=== PATIENT | male | born 1975 | race African-American/Black ===

== ENCOUNTER 2022-05-25 08:14 | Emergency (ER) | payer BC ==
[2022-05-25] MEDS ORDERED: diphenhydrAMINE 50 MG/ML VIAL ONE (09:02)
[2022-05-25] MEDS ORDERED: Metoclopramide HCl 10 MG/2 ML VIAL ONE (09:02)
[2022-05-25 09:30] LABS: #Eosinphils 0.1 10x3/uL (0.0-0.5); #Monocytes 0.6 10x3/uL (0.0-1.1); #Neutrophils 3.3 10x3/uL (1.5-8.4); %Basophils 0.5 % (0.0-2.0); %Lymphocytes 30.7 % (18.0-47.0); %Monocytes 10.9 % (0.0-10.0); %Neutrophils 56.6 % (40.0-75.0); Hemoglobin 16.3 g/dL (13.5-17.5); Mean Corpuscular HGB CONC 34.9 g/dL (32.0-36.0); Mean Corpuscular Hemoglobin 30.5 pg (27.0-33.0); Mean Corpuscular Volume 87.3 fl (81.2-95.1); Mean Platelet Volume 9.1 fl (7.4-10.4); Platelet Count 327 10x3/uL (150-450); Red Blood Cell (RBC) Count 5.35 10x6/uL (4.32-5.72); White Blood Cell (WBC) Count 5.9 10x3/uL (3.5-10.5)
[2022-05-25 09:48] LABS: ALT (SGPT) 28 U/L (8-55); AST (SGOT) 23 U/L (5-34); Alkaline Phosphatase 86 U/L (40-110); Anion Gap 10 mmol/L (10-20); BUN (Urea Nitrogen) 11 mg/dL (8.9-20.6); Bilirubin, Total 0.8 mg/dL (0.2-1.2); Calc. Creatinine Clearance 0 mL/min (70-130); Calcium 9.8 mg/dL (7.8-10.44); Carbon Dioxide 25 mmol/L (22-29); Chloride 106 mmol/L (98-107); Estimated GFR 76; Globulin 3.4 g/dL (2.4-3.5); Glucose 99 mg/dL (70-105); Protein, Total 7.4 g/dL (6.0-8.3); Sodium 137 mmol/L (136-145)
[2022-05-25] MEDS ORDERED: Acetaminophen 500 MG TAB ONE (09:49)
[2022-05-25] MEDS ORDERED: Dexamethasone 10 MG/ML VIAL ONE ×2 (09:49→09:50)
[2022-05-25] MEDS ORDERED: Ketorolac Tromethamine 30 MG/ML VIAL ONE (09:49)
[2022-05-25] MEDS ORDERED: Magnesium 2 GM/50 ML BAG (IN WATER) ONE (09:50)
== END 2022-05-25 11:17 | disposition home or self-care (01) ==
LOC: CSHERS 08:14
DX: R51.9 Headache, unspecified (principal); R42 Dizziness and giddiness; R29.700 NIHSS score 0; F17.210 Nicotine dependence, cigarettes, uncomplicated; Z85.841 Personal history of malignant neoplasm of brain
CPT/HCPCS: 70450; 80053; 85025; 96361; 96365; 96375; J1100; J1200; J1885; J2765; J3475

== ENCOUNTER 2024-08-07 17:40 | Observation (INO) | payer BC ==
[2024-08-07 18:09] LABS: #Basophils 0.02 10x3/uL (0.0-0.2); #Eosinophils 0.07 10x3/uL (0.0-0.5); #Monocytes 0.64 10x3/uL (0.0-1.1); #Neutrophils 2.96 10x3/uL (1.5-8.4); %Basophils 0.3 % (0.0-2.0); %Eosinophils 1.1 % (0.0-6.0); %Lymphocytes 39.2 % (18.0-47.0); %Monocytes 10.5 % (0.0-10.0); %Neutrophils 48.6 % (40.0-75.0); Hematocrit 46.1 % (38.8-50.0); Hemoglobin 16.1 g/dL (13.5-17.5); Mean Corpuscular HGB CONC 34.9 g/dL (32.0-36.0); Mean Corpuscular Hemoglobin 30.3 pg (27.0-33.0); Mean Corpuscular Volume 86.8 fL (81.2-95.1); Mean Platelet Volume 9.1 fL (7.4-10.4); Platelet Count 312 10x3/uL (150-450); RBC Distribution Width 13.6 % (11.5-14.5); Red Blood Cell (RBC) Count 5.31 10x6/uL (4.32-5.72); White Blood Cell (WBC) Count 6.1 10x3/uL (3.5-10.5)
[2024-08-07 18:22] LABS: PTT 29.3 sec (22.0-33.0); Prothrombin Time 10.5 sec (9.5-12.1)
[2024-08-07 18:24] LABS: ALT (SGPT) 30 U/L (8-55); AST (SGOT) 25 U/L (5-34); Alcohol Less than 10.0 mg/dL (Less than 10); Alkaline Phosphatase 77 U/L (40-110); Anion Gap 12 mmol/L (10-20); BUN (Urea Nitrogen) 12 mg/dL (8.9-20.6); Bilirubin, Total 0.3 mg/dL (0.2-1.2); Calc. Creatinine Clearance 0 mL/min (70-130); Calcium 10.1 mg/dL (7.8-10.44); Carbon Dioxide 24 mmol/L (22-29); Chloride 106 mmol/L (98-107); Estimated GFR 70; Globulin 3.5 g/dL (2.4-3.5); Glucose 87 mg/dL (70-105); Potassium 3.9 mmol/L (3.5-5.1); Protein, Total 7.5 g/dL (6.0-8.3); Sodium 138 mmol/L (136-145)
[2024-08-07 18:28] LABS: Troponin I Less than 0.010 ng/mL (< 0.028)
[2024-08-07] MEDS ORDERED: Ketorolac Tromethamine 30 MG (1 mL) VIAL ONE (19:02)
[2024-08-07] MEDS ORDERED: Prochlorperazine 10 MG/2 ML VIAL ONE (19:02)
[2024-08-07] MEDS ORDERED: diphenhydrAMINE 50 MG/ML VIAL ONE (19:02)
[2024-08-07 19:48] LABS: Bilirubin Neg (Negative); Blood, Urine Negative (Negative); Clarity Clear (Clear); Glucose, Urine (Dipstick) Normal (Negative); Ketone, Urine Negative (Negative); Leukocyte Negative (Negative); Nitrite Negative (Negative); Protein, Urine (Dipstick) Negative (Neg-Trace); Urobilinogen Normal mg/dL (Less than 2)
[2024-08-07 19:56] LABS: Amphetamine Not Detected (NotDetected); Barbiturates Screen Not Detected (NotDetected); Benzodiazepine Screen Not Detected (NotDetected); Cocaine Metabolite Screen Not Detected (NotDetected); Methadone Not Detected (NotDetected); Methamphetamine Not Detected (NotDetected); Opiate Screen Not Detected (NotDetected); Oxycodone Screen Not Detected (NotDetected); Phencyclidine (PCP) Not Detected (NotDetected); THC/Cannabinoid Screen Not Detected (NotDetected); Tricyclic Screen Not Detected (NotDetected)
[2024-08-07] MEDS ORDERED: Acetaminophen 325 MG TAB PO PRN (20:12)
[2024-08-07] MEDS ORDERED: Ondansetron PF 4 MG/2 ML Vial IVP PRN (20:12)
[2024-08-07] MEDS ORDERED: Ondansetron ODT 4 MG TAB PO PRN (20:12)
[2024-08-07] MEDS ORDERED: Morphine 4 MG/ML VIAL SLOW IVP PRN (20:23)
[2024-08-07 20:24] LABS: Bacteria/HPF Rare-Few HPF (None Seen); CAUTI Indications for Culture Pelvic or flank pain; RBC/HPF None Seen HPF (0-3); Squamous Epithelial 0-3 HPF (0-3); WBC/HPF None Seen HPF (0-3)
[2024-08-07] MEDS ORDERED: Morphine 2 MG/ML VIAL SLOW IVP PRN (20:24)
[2024-08-07 20:25] LABS: Urine Culture Reflex No No
[2024-08-07 20:29] LABS: Magnesium 2.2 mg/dL (1.6-2.6)
[2024-08-07 22:06] VITALS: BMI 32.5
[2024-08-07] MEDS: Aspirin Chewable 81 MG TAB PO SCH (22:17)
[2024-08-07] MEDS: methylPREDNISolone Sod Succ 1 GM in Sodium Chloride 0.9% 100 ML IVPB SCH (22:17)
[2024-08-08 01:31] VITALS: TEMP 97.9
[2024-08-08 04:07] LABS: #Basophils 0.02 10x3/uL (0.0-0.2); #Neutrophils 4.96 10x3/uL (1.5-8.4); %Basophils 0.3 % (0.0-2.0); %Lymphocytes 16.1 % (18.0-47.0); %Monocytes 1.6 % (0.0-10.0); %Neutrophils 81.8 % (40.0-75.0); Hematocrit 46.8 % (38.8-50.0); Hemoglobin 16.7 g/dL (13.5-17.5); Mean Corpuscular HGB CONC 35.7 g/dL (32.0-36.0); Mean Corpuscular Hemoglobin 31.2 pg (27.0-33.0); Mean Corpuscular Volume 87.3 fL (81.2-95.1); Mean Platelet Volume 9.1 fL (7.4-10.4); Platelet Count 320 10x3/uL (150-450); Red Blood Cell (RBC) Count 5.36 10x6/uL (4.32-5.72); White Blood Cell (WBC) Count 6.1 10x3/uL (3.5-10.5)
[2024-08-08 04:21] LABS: Anion Gap 14 mmol/L (10-20); BUN (Urea Nitrogen) 11 mg/dL (8.9-20.6); Calc. Creatinine Clearance 108 mL/min (70-130); Calcium 9.8 mg/dL (7.8-10.44); Carbon Dioxide 19 mmol/L (22-29); Cardiac Risk 5.2 (Less than 4.5); Chloride 109 mmol/L (98-107); Cholesterol 170 mg/dl (< 200 Desired); Estimated GFR 69; Glucose 124 mg/dL (70-105); HDL Cholesterol 33 mg/dL (>60 Neg Risk); LDL Cholesterol, Calculated 116 mg/dL; Potassium 4.4 mmol/L (3.5-5.1); Sodium 138 mmol/L (136-145); Triglycerides 105 mg/dL (Less than 150)
[2024-08-08] MEDS: Aspirin 81 mg Enteric Coated Tablet PO SCH (08:13)
[2024-08-08] MEDS: Enoxaparin 40 MG (0.4 mL) SYRINGE SC SCH (08:13)
[2024-08-08] MEDS: Lorazepam 2 MG/ML VIAL SLOW IVP SCH (11:32)
[2024-08-08 12:54] LABS: Hemoglobin A1c 5.5 % (4.0-6.0)
[2024-08-08 13:03] VITALS: BP 154/108
[2024-08-08] MEDS: FLU (Fluarix Triv) TS24-25(6MOS UP)/PF 45 MCG/0.5 ML Syringe IM ONE (16:22)
== END 2024-08-08 16:24 | disposition home or self-care (01) ==
LOC: CSHERS 17:40 → CSHTELE 19:31
PROVIDERS: ADMIT Family Medicine; ATTEND Internal Medicine
PROC: B24BZZZ Ultrasonography of Heart with Aorta (ICD-10-PCS; principal; 2024-08-08)
DX: R51.9 Headache, unspecified (principal); G45.9 Transient cerebral ischemic attack, unspecified; I10 Essential (primary) hypertension; E78.5 Hyperlipidemia, unspecified; G40.909 Epilepsy, unspecified, not intractable, without status epilepticus; G47.33 Obstructive sleep apnea (adult) (pediatric); F17.210 Nicotine dependence, cigarettes, uncomplicated; Z85.841 Personal history of malignant neoplasm of brain; Z98.52 Vasectomy status; Z79.82 Long term (current) use of aspirin; Z79.899 Other long term (current) drug therapy
CPT/HCPCS: 0042T; 36415; 36416; 70450; 70553; 71045; 72156; 76376; 80048; 80053; 80061; 80306; 80307; 81001; 82550; 83036; 83735; 84443; 84484; 85025; 85610; 85730; 86850; 86900; 86901; 93005; 93010; 93306; 96372; 96374; 96375; 96376; G0378; J0780; J1200; J1650; J1885; J2060; J2930